=== PATIENT | female | born 1945 | race Caucasian/White ===

== ENCOUNTER 2016-09-03 09:10 | Outpatient (CLI) | payer OTHER ==
--- NOTE | 2016-09-03 10:00 | DIAGNOSTIC IMAGING REPORT ---
PROCEDURE: DEXA BONE DENSITY STUDY CLINICAL INDICATION: SCREENING FOR OSTEOPOROSIS COMPARISON: DEXA scan 06/13/2010. FINDINGS: LUMBAR SPINE: Bone mineral density 0.814, T-score -2.1, osteopenia (previously bone mineral density 0.817, T-score -2.1, 0.4% bone mineral density loss). LEFT HIP: Bone mineral density 0.869, T-score -0.6, normal (previously bone mineral density 0.867, T-score -0.6, 0.2% bone mineral density increase). LEFT FEMORAL NECK: Bone mineral density 0.673, T-score -1.6, osteopenia (previously bone mineral density 0.653, T-score -1.8, 3% bone mineral density increase). (T score greater or equal to -1.0 to: NORMAL) (T score from -1.1 to -2.4: OSTEOPENIA) (T score ess than or equal to -2.5: OSTEOPOROSIS) IMPRESSION: 1. Lumbar spine osteopenia without significant change 2. Left hip osteopenia with femoral neck 3% bone mineral density increase 3. 10-year fracture risk: Major osteoporotic fracture 10%, hip fracture 1.7%.
--- NOTE | 2016-09-03 11:06 | DIAGNOSTIC IMAGING REPORT ---
PROCEDURE: MG BILATERAL SCREENING W/CAD INDICATION: Screening, personal history of benign left breast biopsy TECHNIQUE: Standard CC and MLO views bilaterally. Computer aided detection was used. COMPARISON: 05/24/2015, 05/19, 10/28/2012 FINDINGS: Mildly dense fibroglandular tissue is present bilaterally. No developing densities, areas of architectural distortion, or suspicious microcalcifications. IMPRESSION: 1. Stable mammograms without radiographic evidence of malignancy. RESULT CODE: 1- Negative. A. A negative report should not delay biopsy if a dominant or clinically suspicious mass is present. 10-15% of cancers are not identified by x-ray. B. A negative report may reinforce clinical impression. C. Adenosis and dense breasts may obscure an underlying neoplasm. D. False positive reports average 6-10%. E.. A yearly screening mammogram is recommended. A reminder letter will be scheduled.
== END 2016-09-03 23:00 ==
LOC: MAM SRH 09:10
DX: M85.89 Other specified disorders of bone density and structure, multiple sites (principal); Z78.0 Asymptomatic menopausal state; Z12.31 Encounter for screening mammogram for malignant neoplasm of breast